=== PATIENT | male | born 1970 | race African-American/Black ===

== ENCOUNTER 2017-08-01 23:16 | Emergency (ER) | payer SELFPAY ==
[~2017-08-01] VITALS: Ht 172.7 cm; Wt 93.0 kg
[2017-08-01] MEDS ORDERED: LISINOPRIL10 MG PO (23:46)
[2017-08-02] MEDS ORDERED: DEXAMETHASONE SOD PHOS 10 MG/1 ML VIAL IV ONE
== END 2017-08-02 00:20 | disposition home or self-care (01) ==
LOC: FSED 23:16
DX: J01.00 Acute maxillary sinusitis, unspecified (principal); J01.10 Acute frontal sinusitis, unspecified
CPT/HCPCS: 99282

== ENCOUNTER 2017-11-05 11:50 | Emergency (ER) | payer SELFPAY ==
[~2017-11-05] VITALS: Ht 172.7 cm; Wt 93.0 kg
[~2017-11-05 11:50] MED LIST: LISINOPRIL10 MG PO
--- OUTSIDE RECORDS SUMMARY | 2017-11-05 11:52 | XMS REPORT ---
Author Author [facility] Address Unknown Phone Unavailable Care Team Providers Care Sports Book Board Attendant Name Role Phone Unavailable Unavailable Problems This patient has no known problems. Allergies, Adverse Reactions, Alerts This patient has no known allergies or adverse reactions. Medications This patient has no known medications. Encounters Start Date/Time End Date/Time Encounter Type Admission Type Attending [facility] Facility Care Department Encounter ID 2018-01-20 00:00:00 2018-01-20 00:00:00 Outpatient [facility] [id number] 2017-12-04 00:00:00 2017-12-04 00:00:00 Outpatient [facility] [id number] 2017-11-28 00:00:00 2017-11-28 00:00:00 Outpatient [facility] [id number] 2017-10-24 17:13:46 2017-10-24 17:13:46 Outpatient [facility] [id number] 2017-10-22 09:46:01 2017-10-22 09:46:01 Outpatient [facility] [id number]
== END 2017-11-05 12:27 | disposition home or self-care (01) ==
LOC: FSED 11:50
DX: H10.022 Other mucopurulent conjunctivitis, left eye (principal)
CPT/HCPCS: 99283

== ENCOUNTER 2018-04-21 11:46 | Emergency (ER) | payer SELFPAY ==
[~2018-04-21] VITALS: Ht 172.7 cm; Wt 93.0 kg
[2018-04-21] MEDS ORDERED: HYDRALAZINE HCL 25 MG TAB PO ONE (12:15)
[2018-04-21] MEDS ORDERED: ASPIRIN 325 MG TAB PO ONE (12:15)
--- NOTE | 2018-04-21 12:34 | Diagnostic Imaging Report ---
EXAMINATION: PA and lateral views of the chest. COMPARISON: None CLINICAL HISTORY: Chest pain DISCUSSION: Lines/tubes: None. Lungs: The lungs are well inflated and clear. There is no evidence of pneumonia or pulmonary edema. Pleura: There is no pleural effusion or pneumothorax. Heart and mediastinum: The cardiomediastinal silhouette is normal. Bones and soft tissues: No acute bony abnormalities. Degenerative changes in the thoracic spine IMPRESSION: No acute cardiopulmonary abnormalities. Signed by: Dr. Ariel Curran M.D. on 04/21/2018 12:31 PM
[2018-04-21 13:06] VITALS: BP 142/69
== END 2018-04-21 13:09 | disposition home or self-care (01) ==
LOC: FSED 11:46
DX: R07.9 Chest pain, unspecified (principal); M94.0 Chondrocostal junction syndrome [Tietze]; R11.2 Nausea with vomiting, unspecified; R19.7 Diarrhea, unspecified; I10 Essential (primary) hypertension
CPT/HCPCS: 71046; 80053; 80307; 84484; 85025; 93005; 99284